=== PATIENT | female | born 1980 | race Caucasian/White ===

== ENCOUNTER 2017-07-26 14:23 | Emergency (ER) | payer BC, OTHER ==
[~2017-07-26] VITALS: Ht 157.5 cm; Wt 73.9 kg
[~2017-07-26 14:23] MED LIST: BACITRACIN 500U30 G1 TOP; BACTRIM DS TAB1 EACH PO; IBUPROFEN 800800 M1 PO; INDOMETHACIN PO; KETOCONAZOLE 2200 MG PO; LAMISIL250 MG PO; LORTAB 5 MG/5001 TA1 PO; NAPROSYN500 MG PO; NOHOMEMEDICATIONS; NORFLEX100 MG PO; ONDANSETRON HCL4 M2 PO; PERCOCET 5-3251 EACH PO; SPRINTEC1 EACH PO; VALACYCLOVIR500 MG PO; WOMEN'S DAILY1 EAC1 PO; ZOFRAN ODT4 MG PO; ZOFRAN4 MG PO
[2017-07-26] MEDS ORDERED: METFORMIN HCL500 MG PO (14:32)
[2017-07-26] MEDS ORDERED: OSELB75 PO (15:24)
== END 2017-07-26 15:35 | disposition home or self-care (01) ==
LOC: ER 14:23
DX: J11.1 Influenza due to unidentified influenza virus with other respiratory manifestations (principal); Z90.49 Acquired absence of other specified parts of digestive tract; Z88.0 Allergy status to penicillin; Z88.8 Allergy status to other drugs, medicaments and biological substances

== ENCOUNTER 2017-12-03 18:38 | Emergency (ER) | payer BC, OTHER ==
[~2017-12-03] VITALS: Ht 160 cm; Wt 67.1 kg
[~2017-12-03 18:38] MED LIST changes: +METFORMIN HCL500 MG PO; +OSELB75 PO
[2017-12-03] MEDS ORDERED: METFORMIN HCL500 MG PO (18:50)
[2017-12-03] MEDS ORDERED: [UNRECOGNIZED DRUG - OTHER] (18:50)
[2017-12-03 19:41] LABS: URINE BILIRUBIN NEGATIVE (Negative); URINE BLOOD 2+ (Negative); URINE CLARITY CLEAR; URINE COLOR YELLOW; URINE GLUCOSE-RANDOM* NEGATIVE (Negative); URINE KETONES NEGATIVE (Negative); URINE LEUKOCYTES-REFLEX NEGATIVE (Negative); URINE NITRITE-REFLEX NEGATIVE (Negative); URINE PROTEIN (DIPSTICK) NEGATIVE (Negative); URINE SPECIFIC GRAVITY <= 1.005 (1.005-1.035); URINE UROBILINOGEN 0.2 E.U./dl (0.2-1.0)
[2017-12-03 19:42] LABS: ABSOLUTE NEUTROPHILS 4.9 thou/uL (1.4-8.2); BASOPHILS 0.9 % (0.0-2.0); EOSINOPHILS 2.2 % (0.0-3.0); HEMATOCRIT 39.8 % (37.0-47.0); HEMOGLOBIN 13.7 gm/dL (12.0-15.0); MCH 29.5 pg (26.0-34.0); MCHC 34.5 g/dL (28.0-37.0); MCV 85.4 fL (80.0-100.0); MONOCYTES 7.1 % (1.0-8.0); PLATELET COUNT 223 thou/uL (150-400); POLYS 57.8 % (36.0-66.0); RBC 4.65 mil/uL (4.20-5.00); RDW 13.6 % (10.5-14.5); WBC 8.4 thou/uL (4.0-11.0)
[2017-12-03 19:50] LABS: SQUAMOUS 4-10 Moderate /LPF (0-3)
[2017-12-03 19:50] LABS: CALCIUM 9.2 mg/dL (8.5-10.1); CREATININE 0.7 mg/dL (0.6-1.0); POTASSIUM 3.7 mmol/L (3.5-5.1)
[2017-12-03 19:51] LABS: BACTERIA-REFLEX None Seen /HPF (None Seen); CASTS None Seen /LPF (None Seen); CRYSTALS None Seen /LPF (None Seen); URINE RBC 0-2 Rare /HPF (0-2); URINE WBC-REFLEX None Seen /HPF (0-5)
[2017-12-03 19:56] LABS: TOTAL BILIRUBIN 0.7 mg/dL (<0.1-1.0); TOTAL PROTEIN 7.9 g/dL (6.4-8.2)
[2017-12-03] MEDS ORDERED: MOBIC15 MG PO (21:25)
[2017-12-03] MEDS ORDERED: ZOFRAN ODT4 MG PO (21:26)
[2017-12-03 21:59] VITALS: BP 99/46
== END 2017-12-03 22:00 | disposition home or self-care (01) ==
LOC: ER 18:38
PROVIDERS: Physician Assistant
DX: K52.9 Noninfective gastroenteritis and colitis, unspecified (principal); Z90.49 Acquired absence of other specified parts of digestive tract; Z88.0 Allergy status to penicillin; Z88.8 Allergy status to other drugs, medicaments and biological substances

== ENCOUNTER 2019-05-07 11:07 | Emergency (ER) | payer BC, OTHER ==
[~2019-05-07] VITALS: Ht 160 cm; Wt 86.2 kg
[~2019-05-07 11:07] MED LIST changes: +MOBIC15 MG PO; +[UNRECOGNIZED DRUG - OTHER]
[2019-05-07 12:15] VITALS: BP 119/69
[2019-05-07] MEDS ORDERED: LORATIDINE 10 M10 M1 PO (12:17)
[2019-05-07] MEDS ORDERED: SALINE NOSE SPR45 ML NASAL (12:17)
== END 2019-05-07 12:39 | disposition home or self-care (01) ==
LOC: ER 11:07
DX: O26.893 Other specified pregnancy related conditions, third trimester (principal); J31.0 Chronic rhinitis; Z90.49 Acquired absence of other specified parts of digestive tract; Z88.0 Allergy status to penicillin; Z88.8 Allergy status to other drugs, medicaments and biological substances

== ENCOUNTER 2019-12-28 13:00 | Emergency (ER) | payer BC, OTHER ==
[~2019-12-28] VITALS: Ht 160 cm; Wt 78.9 kg
[~2019-12-28 13:00] MED LIST changes: +LORATIDINE 10 M10 M1 PO; +SALINE NOSE SPR45 ML NASAL
[2019-12-28] MEDS ORDERED: IBUPROFEN 600600 M1 PO (14:55)
[2019-12-28] MEDS ORDERED: ZOFRAN4 MG PO (14:55)
[2019-12-28] MEDS ORDERED: MUCINEX DM ER1 EACH PO (14:55)
[2019-12-28 15:10] VITALS: BP 121/60
== END 2019-12-28 15:09 | disposition home or self-care (01) ==
LOC: ER 13:00
DX: U07.1 COVID-19 (principal); J06.9 Acute upper respiratory infection, unspecified; Z88.0 Allergy status to penicillin; Z88.8 Allergy status to other drugs, medicaments and biological substances; Z90.49 Acquired absence of other specified parts of digestive tract